=== PATIENT | female | born 1990 | race Caucasian/White ===

== ENCOUNTER 2022-03-21 09:40 | Observation (INO) | payer MEDICAID ==
[~2022-03-21] VITALS: Ht 160 cm; Wt 98.0 kg
[2022-03-21] MEDS ORDERED: PNV1TABL76 MT (12:49)
== END 2022-03-21 13:15 | disposition home or self-care (01) ==
LOC: 8 EST A/PP 09:40
PROVIDERS: ADMIT Obstetrics & Gynecology; ATTEND Obstetrics & Gynecology
DX: O9A.212 Injury, poisoning and certain other consequences of external causes complicating pregnancy, second trimester (principal); Z3A.22 22 weeks gestation of pregnancy; V89.2XXA Person injured in unspecified motor-vehicle accident, traffic, initial encounter; Y93.89 Activity, other specified; Y92.89 Other specified places as the place of occurrence of the external cause; Y99.8 Other external cause status
CPT/HCPCS: 59025; 76805; G0378

== ENCOUNTER 2022-03-21 13:27 | Emergency (ER) | payer MEDICAID ==
[~2022-03-21] VITALS: Ht 160 cm; Wt 107.0 kg
[~2022-03-21 13:27] MED LIST: PNV1TABL76 MT
[2022-03-21 13:36] VITALS: BP 117/75
== END 2022-03-21 19:12 | disposition left against medical advice (07) ==
LOC: ER 13:27
DX: Z53.21 Procedure and treatment not carried out due to patient leaving prior to being seen by health care provider (principal)
CPT/HCPCS: 99281; G0378